=== PATIENT | male | born 1975 | race African-American/Black ===

== ENCOUNTER 2021-05-21 22:37 | Emergency (ER) | payer OTHER, SELFPAY ==
[~2021-05-21] VITALS: Ht 172.7 cm; Wt 80.2 kg
[2021-05-21] MEDS ORDERED: HYDR-3490 PO (22:57)
[2021-05-21 23:17] LABS: BASO # 0.1 10^3/uL (0.0-0.2); BASO % 0.6 % (0.0-1.0); EOS # 0.1 10^3/uL (0.0-0.5); HEMATOCRIT 37.4 % (42.0-52.0); HEMOGLOBIN 12.3 g/dl (13.5-17.5); MEAN CORPUSCULAR HEMOGLOBIN 29.3 pg (27.0-33.0); MEAN CORPUSCULAR HGB CONC 32.9 g/dl (32.0-36.5); MONO # 0.5 10^3/uL (0.0-0.8); MONO % 5.8 % (2.0-8.0); NEUTROPHILS # 6.8 10^3/uL (1.5-8.5); NEUTROPHILS % 80.4 % (36.0-66.0); PLATELET COUNT, AUTOMATED 200 10^3/uL (150-450); WHITE BLOOD COUNT 8.4 10^3/uL (4.0-10.0)
[2021-05-21] MEDS ORDERED: ISOVUE-370 76% 100ML VIAL As Ordered ONE (23:17)
[2021-05-21 23:47] LABS: ALBUMIN 3.5 GM/DL (3.2-5.2); BILIRUBIN,DIRECT 0.3 MG/DL (0.0-0.2); BILIRUBIN,TOTAL 1.2 MG/DL (0.2-1.0); CALCIUM LEVEL 8.8 MG/DL (8.5-10.1); CREATININE FOR GFR 1.47 MG/DL (0.70-1.30); GLOMERULAR FILTRATION RATE 55.4 (>60); POTASSIUM SERUM 3.7 MEQ/L (3.5-5.1); TOTAL PROTEIN 7.4 GM/DL (6.4-8.2)
--- NOTE | 2021-05-22 | REPVR ---
PROCEDURE INFORMATION: Exam: CT Chest With Contrast; Diagnostic Exam date and time: 05/21/2021 10:49 PM Age: 45 years old Clinical indication: Pain; Other: General; Additional info: Trauma TECHNIQUE: Imaging protocol: Diagnostic computed tomography of the chest with contrast. Radiation optimization: All CT scans at this facility use at least one of these dose optimization techniques: automated exposure control; mA and/or kV adjustment per patient size (includes targeted exams where dose is matched to clinical indication); or iterative reconstruction. Contrast material: ISO; Contrast volume: 100 ml; Contrast route: INTRAVENOUS (IV); COMPARISON: No relevant prior studies available. FINDINGS: Lungs: Minimal dependent atelectasis in the lower lobes. Pleural spaces: Unremarkable. No pneumothorax. No pleural effusion. Heart: Unremarkable. No cardiomegaly. No pericardial effusion. Pulmonary arteries: The main pulmonary artery measures 22 mm. Aorta: The ascending thoracic aorta measures 30 mm. Other arteries: Coronary artery calcifications are present. Lymph nodes: Unremarkable. No enlarged lymph nodes. Kidneys and ureters: Small nonobstructing right renal calculi. Bones/joints: Unremarkable. No acute fracture. Soft tissues: There is soft tissue conforming to the anterior mediastinum consistent with residual thymic tissue. IMPRESSION: 1. Small nonobstructing right renal calculi. 2. Otherwise negative CT chest. No acute posttraumatic change is seen. Electronically signed by: Bari Cnanon On 05/22/2021 00:00:21 AM
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
--- NOTE | 2021-05-22 00:07 | REPVR ---
PROCEDURE INFORMATION: Exam: CT Thoracic Spine Without Contrast Exam date and time: 05/21/2021 10:49 PM Age: 45 years old Clinical indication: Pain in thoracic spine; Additional info: Trauma TECHNIQUE: Imaging protocol: Computed tomography images of the thoracic spine without contrast. Radiation optimization: All CT scans at this facility use at least one of these dose optimization techniques: automated exposure control; mA and/or kV adjustment per patient size (includes targeted exams where dose is matched to clinical indication); or iterative reconstruction. COMPARISON: CT ABD PELVIS WITH CONTRAST 05/21/2021 11:25 PM FINDINGS: Vertebrae: No acute fracture. Normal alignment. Discs/Spinal canal/Neural foramina: No significant disc protrusion. No severe spinal canal stenosis. No significant neural foraminal narrowing. Soft tissues: Unremarkable. IMPRESSION: Negative CT thoracic spine. No fracture or subluxation is evident and no spinal or foraminal stenosis. Electronically signed by: Bari Cannon On 05/22/2021 00:06:48 AM
--- NOTE | 2021-05-22 00:08 | REPVR ---
PROCEDURE INFORMATION: Exam: CT Lumbar Spine Without Contrast Exam date and time: 05/21/2021 10:49 PM Age: 45 years old Clinical indication: Low back pain; Additional info: Trauma TECHNIQUE: Imaging protocol: Computed tomography images of the lumbar spine without contrast. Radiation optimization: All CT scans at this facility use at least one of these dose optimization techniques: automated exposure control; mA and/or kV adjustment per patient size (includes targeted exams where dose is matched to clinical indication); or iterative reconstruction. 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 The lumbar vertebral bodies are intact with no compression or acute fracture. Discs/Spinal canal/Neural foramina: No spinal or foraminal stenosis. Kidneys and ureters: Small nonobstructing bilateral renal calculi. Soft tissues: Unremarkable. IMPRESSION: 1. Small nonobstructing bilateral renal calculi. 2. 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 3. Otherwise negative CT lumbar spine. No fracture or subluxation is evident and no spinal or foraminal stenosis. Electronically signed by: Bari Cannon On 05/22/2021 00:08:34 AM
--- NOTE | 2021-05-22 00:15 | REPVR ---
PROCEDURE INFORMATION: Exam: CT Cervical Spine Without Contrast Exam date and time: 05/21/2021 10:49 PM Age: 45 years old Clinical indication: Neck pain; Additional info: Trauma TECHNIQUE: Imaging protocol: Computed tomography images of the cervical spine without contrast. Radiation optimization: All CT scans at this facility use at least one of these dose optimization techniques: automated exposure control; mA and/or kV adjustment per patient size (includes targeted exams where dose is matched to clinical indication); or iterative reconstruction. COMPARISON: No relevant prior studies available. FINDINGS: Bones/joints: No definitive acute cervical spine fracture. The facet alignment is preserved bilaterally. The occipital condyles and C1-C2 articulations appear intact. There is a focal concavity or Schmorl's node of the superior C7 endplate. There is a tiny mineralized density anterior to the superior C4 endplate without a well-defined acute fracture of the adjacent vertebral body. Loss of normal cervical lordosis. Mild retrolisthesis of C3 on C4 and C4 on C5. The T1 spinous process is unfused. Discs/Spinal canal/Neural foramina: Degenerative changes are visualized at multiple cervical levels. There is a central protrusion at C3-C4, with moderate spinal canal stenosis. A small left paracentral disc herniation/extrusion is noted at C5-C6 with mild spinal canal stenosis. Moderate spinal canal stenosis noted at C6-C7. Mild spinal canal stenosis at C4-C5 with a small central protrusion. Left neural foraminal narrowing at C6-C7. A decrease in disc height is identified at C3-C4 and C6-C7. Oropharynx: A tiny calcification is visualized within the left palatine tonsil. Lungs: Small right apical bullae. Soft tissues: Mild prominence of the adenoids within the posterior nasopharynx. IMPRESSION: 1. No definitive acute cervical spine fracture. 2. Degenerative changes are visualized at multiple cervical levels. 3. There is a central protrusion at C3-C4, with moderate spinal canal stenosis. A small left paracentral disc herniation/extrusion is noted at C5-C6 with mild spinal canal stenosis. Moderate spinal canal stenosis noted at C6-C7. Mild spinal canal stenosis at C4-C5 with a small central protrusion. These findings can be further evaluated with MRI. 4. Left neural foraminal narrowing at C6-C7. 5. Loss of normal cervical lordosis. Mild retrolisthesis of C3 on C4 and C4 on C5. 6. The T1 spinous process is unfused. Electronically signed by: Samir Mittal On 05/22/2021 00:15:39 AM
--- NOTE | 2021-05-22 03:21 | REPVR ---
PROCEDURE INFORMATION: Exam: XR Right Shoulder Exam date and time: 05/22/2021 2:39 AM Age: 45 years old Clinical indication: Other: Trauma TECHNIQUE: Imaging protocol: XR Right shoulder. Views: 2 or more views. COMPARISON: CR Chest, 1 view 05/22/2021 2:16 AM FINDINGS: Bones/joints: Normal. Soft tissues: Normal. IMPRESSION: Negative right shoulder. Electronically signed by: Bari Cannon On 05/22/2021 03:21:35 AM
--- NOTE | 2021-05-22 03:23 | REPVR ---
PROCEDURE INFORMATION: Exam: XR Right Femur Exam date and time: 05/22/2021 2:39 AM Age: 45 years old Clinical indication: Other: Trauma TECHNIQUE: Imaging protocol: XR Right femur. Views: 2 views. COMPARISON: CT ABD PELVIS WITH CONTRAST 05/21/2021 11:25 PM FINDINGS: Bones/joints: Unremarkable. No acute fracture. Soft tissues: Unremarkable. IMPRESSION: Negative right femur. PROCEDURE INFORMATION: Exam: XR Left Femur Exam date and time: 05/22/2021 2:39 AM Age: 45 years old Clinical indication: Other: Trauma TECHNIQUE: Imaging protocol: XR Left femur. Views: 2 views. COMPARISON: CT ABD PELVIS WITH CONTRAST 05/21/2021 11:25 PM FINDINGS: Bones/joints: Unremarkable. No acute fracture. Soft tissues: Unremarkable. IMPRESSION: Negative left femur. Electronically signed by: Bari Cannon On 05/22/2021 03:22:37 AM
--- NOTE | 2021-05-22 03:24 | REPVR ---
PROCEDURE INFORMATION: Exam: XR Right Tibia and Fibula Exam date and time: 05/22/2021 2:39 AM Age: 45 years old Clinical indication: Other: Trauma TECHNIQUE: Imaging protocol: XR Right tibia and fibula. Views: 2 views. COMPARISON: No relevant prior studies available. FINDINGS: Bones/joints: Normal. Soft tissues: Normal. IMPRESSION: Negative right tibia and fibula. PROCEDURE INFORMATION: Exam: XR Left Tibia and Fibula Exam date and time: 05/22/2021 2:39 AM Age: 45 years old Clinical indication: Other: Trauma TECHNIQUE: Imaging protocol: XR Left tibia and fibula. Views: 2 views. COMPARISON: No relevant prior studies available. FINDINGS: Bones/joints: Normal. Soft tissues: Normal. IMPRESSION: Negative left tibia and fibula. Electronically signed by: Bari Cannon On 05/22/2021 03:23:51 AM
--- NOTE | 2021-05-22 03:26 | REPVR ---
PROCEDURE INFORMATION: Exam: XR Chest Exam date and time: 05/22/2021 3:08 AM Age: 45 years old Clinical indication: Other: [place]; Additional info: Trauma TECHNIQUE: Imaging protocol: XR of the chest. Views: 1 view. COMPARISON: CT Chest with contrast 05/21/2021 11:25 PM FINDINGS: Lungs: Unremarkable. No consolidation. Pleural spaces: Unremarkable. No pleural effusion. No pneumothorax. Heart/Mediastinum: Unremarkable. No cardiomegaly. Bones/joints: Unremarkable. IMPRESSION: Negative chest. Electronically signed by: Bari Cannon On 05/22/2021 03:25:23 AM
[2021-05-22] MEDS ORDERED: ASPI-161 PO (04:45)
[2021-05-22] MEDS ORDERED: HYDR-3490 PO (04:45)
[2021-05-22] MEDS ORDERED: HOME MED LIST COMPLETE! XX SCH (04:45)
[2021-05-22] MEDS ORDERED: LIPI20TA PO (04:45)
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
[2021-05-22 08:34] VITALS: BP 128/76
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
== END 2021-05-22 08:50 | disposition home or self-care (01) ==
LOC: M ED 22:37
DX: S09.90XA Unspecified injury of head, initial encounter (principal); M25.511 Pain in right shoulder; M79.604 Pain in right leg; M79.605 Pain in left leg; M54.9 Dorsalgia, unspecified; S30.1XXA Contusion of abdominal wall, initial encounter; V49.40XA Driver injured in collision with unspecified motor vehicles in traffic accident, initial encounter; M50.21 Other cervical disc displacement, high cervical region; M43.12 Spondylolisthesis, cervical region; M50.222 Other cervical disc displacement at C5-C6 level; M48.02 Spinal stenosis, cervical region; M43.06 Spondylolysis, lumbar region; N20.0 Calculus of kidney; J34.9 Unspecified disorder of nose and nasal sinuses; I10 Essential (primary) hypertension; E78.5 Hyperlipidemia, unspecified; Z88.2 Allergy status to sulfonamides; Z79.899 Other long term (current) drug therapy
CPT/HCPCS: 36415; 70450; 71045; 71260; 72125; 72128; 72131; 73030; 73552; 73564; 73590; 74177; 80047; 80048; 80076; 85025; 93041; 94760; 99285; Q9967